=== PATIENT | female | born 1990 | race American Indian/Alaskan Native ===

== ENCOUNTER 2016-10-01 11:00 | Emergency (ER) | payer OTHER ==
[2016-10-01 11:01] VITALS: BMI 27.8
[2016-10-01 11:17] VITALS: TEMP 98
--- NOTE | 2016-10-01 11:29 | ED PDOC ---
Arrival/HPI - General Historian: Patient - History of Present Illness Time/Duration: Prior to Arrival Symptom Onset: Sudden Symptom Course: Unchanged Context: Home <Corinne Whitlock - Last Filed: 10/01/16 17:26> <Heath Washington - Last Filed: 10/01/16 17:31> - General Chief Complaint: Back Pain Time Seen by Provider: 10/01/16 11:16 - History of Present Illness Narrative History of Present Illness (Text): 10/01/16 11:25 26 yo female with no significant PMH presents to emergency department with lower back pain. Patient states that pain began on Wednesday, she denies any trauma or strain. She describes the pain as stabbing. Initially pain radiated throughout her back but currently is located on the lower left side. Patient states pain changes with position. She states she took lidoderm patch which helped with the pain, but the pain would returned. She denies any similar symptoms in the past. She denies fever, chill, diaphoresis, numbness, tingling and weakness. PMD: None (Corinne Whitlock) Past Medical History - Provider Review Nursing Documentation Reviewed: Yes - Infectious Disease Hx of Infectious Diseases: None - Tetanus Immunization Tetanus Immunization: Unknown - Past Medical History Past Medical History: No Previous - Psychiatric Hx Psychophysiologic Disorder: No Hx Anxiety: No Hx Bipolar Disorder: No Hx Depression: No Hx Emotional Abuse: No Hx Hallucinations: No Hx Panic Disorder: No Hx Post Traumatic Stress Disorder: No Hx Psychosis: No Hx Physical Abuse: No Hx Schizophrenia: No Hx Sexual Abuse: No Hx Substance Use: Yes (marijuana) - Surgical History Hx Orthopedic Surgery: Yes (foot) - Anesthesia Hx Anesthesia: Yes - Suicidal Assessment Feels Threatened In Home Enviroment: No <Corinne Whitlock - Last Filed: 10/01/16 17:26> Family/Social History - Physician Review Nursing Documentation Reviewed: Yes Family/Social History: No Known Family HX Smoking Status: Never Smoked Hx Alcohol Use: Yes (SOCIAL) Hx Substance Use: Yes (marijuana) Hx Substance Use Treatment: No <Corinne Whitlock - Last Filed: 10/01/16 17:26> Allergies/Home Meds <Corinne Whitlock - Last Filed: 10/01/16 17:26> <Heath Washington - Last Filed: 10/01/16 17:31> Allergies/Adverse Reactions: Allergies No Known Allergies Allergy (Verified 10/01/16 11:13) Review of Systems - Review of Systems Constitutional: Normal. absent: Fatigue, Weight Change, Fevers Eyes: Normal. absent: Vision Changes ENT: Normal. absent: Sore Throat, Rhinorrhea, Sinus Congestion Respiratory: Normal. absent: SOB, Cough, Wheezing Cardiovascular: Normal. absent: Chest Pain, Palpitations, Calf Pain, Syncope Gastrointestinal: Normal. absent: Abdominal Pain, Constipation, Diarrhea, Nausea, Vomiting Genitourinary Female: Normal. absent: Dysuria, Frequency, Hematuria Musculoskeletal: Back Pain, Myalgias Skin: Normal. absent: Rash, Pruritis, Laceration, Ulcer Neurological: Normal. absent: Headache, Dizziness, Focal Weakness, Gait Changes , Speech Changes Endocrine: Normal. absent: Diaphoresis, Polyuria, Polydipsia Hemo/Lymphatic: Normal. absent: Easy Bleeding, Easy Bruising Psychiatric: Normal <Corinne Whitlock - Last Filed: 10/01/16 17:26> Physical Exam - Systems Exam Head: Present: Atraumatic, Normocephalic Pupils: Present: PERRL. No: Pinpoint Extroacular Muscles: Present: EOMI. No: Gaze Palsy, Entrapment Conjunctiva: Present: Normal Mouth: Present: Moist Mucous Membranes Nose (External): Present: Atraumatic Neck: Present: Normal Range of Motion Respiratory/Chest: Present: Clear to Auscultation, Good Air Exchange. No: Respiratory Distress, Accessory Muscle Use, Wheezes, Rales, Rhonchi, Tachypneic Cardiovascular: Present: Regular Rate and Rhythm, Normal S1, S2. No: Murmurs, Tachycardic, Bradycardic Abdomen: Present: Normal Bowel Sounds. No: Tenderness, Distention, Peritoneal Signs Back: Present: Paraspinal Tenderness (left > right) Upper Extremity: Present: Normal Inspection, NORMAL PULSES. No: Cyanosis, Edema , Tenderness, Swelling Lower Extremity: Present: Normal Inspection. No: Edema, CALF TENDERNESS Neurological: Present: GCS=15, CN II-XII Intact, Speech Normal, Motor Func Grossly Intact, Normal Sensory Function Skin: Present: Warm, Dry, Normal Color. No: Rashes Psychiatric: Present: Alert, Oriented x 3, Normal Insight, Normal Concentration <Corinne Whitlock - Last Filed: 10/01/16 17:26> Medical Decision Making <Corinne Whitlock - Last Filed: 10/01/16 17:26> <Heath Washington - Last Filed: 10/01/16 17:31> ED Course and Treatment: 10/01/16 11:31 Impression: 26 yo female with no significant PMH presents with right sided lower back pain. Differential Diagnosis included but are not limited to: - Muscle strain Plan: - flexeril and toradol - Reassess and disposition Progress Notes: 10/01/16 12:25 - Patient is doing better, pain has improved. Patient is to follow up with PMD in 1-2 days. Discharge plan was discussed with patient, all questions answered. (KamleshRosalindCorinne) 26yo female presents with back pain. No incontinence. No saddles anesthesia. no trauma. Agree with resident note. Exam: paraspinal lower lumbar tenderness worse with movement. Pain when raising left leg. Neg leg raise test. No ataxia. Pain controlled with flexeril and toradol. Patient to f/u with pmd in 1-2days. (Heath Washington) - Medication Orders Current Medication Orders: Discontinued Medications Cyclobenzaprine HCl (Flexeril) 10 mg PO STAT STA Stop: 10/01/16 11:34 Last Admin: 10/01/16 12:05 Dose: Not Given Non-Admin Reason: Patient Refused Ketorolac Tromethamine (Toradol) 60 mg IM STAT STA Stop: 10/01/16 11:34 Last Admin: 10/01/16 12:04 Dose: 60 mg Disposition/Present on Arrival - Present on Arrival Any Indicators Present on Arrival: No History of DVT/PE: No History of Uncontrolled Diabetes: No Urinary Catheter: No History of Decub. Ulcer: No History Surgical Site Infection Following: None - Disposition Have Diagnosis and Disposition been Completed?: Yes Disposition Time: 12:20 <Corinne Whitlock - Last Filed: 10/01/16 17:26> - Disposition Patient Plan: Discharge <Heath Washington - Last Filed: 10/01/16 17:31> - Disposition Diagnosis: Muscle spasm Disposition: HOME/ ROUTINE Condition: GOOD Additional Instructions: Nayana Saavedra, thank you for letting us take care of you today. Your provider was Dr. Whitlock and Dr. Washington. You were treated for muscle spasm. The emergency medical care you received today was directed at your acute symptoms. If you were prescribed any medication, please fill it and take as directed. It may take several days for your symptoms to resolve. Return to the Emergency Department if your symptoms worsen, do not improve, or if you have any other problems. Please contact your doctor or call one of the physicians/clinics you have been referred to that are listed on the Patient Visit Information form that is included in your discharge packet. Bring any paperwork you were given at discharge with you along with any medications you are taking to your follow up visit. Our treatment cannot replace ongoing medical care by a primary care provider (PCP) outside of the emergency department. Thank you for allowing the [facility] team to be part of your care today. Prescriptions: Cyclobenzaprine [Flexeril] 5 mg PO BID PRN #10 tab PRN Reason: Pain, Severe (8-10) Naproxen 500 mg PO BID PRN #20 tab PRN Reason: Pain, Moderate (4-7) Referrals: Mouna Cid MD [Staff Provider] - Follow up with primary Forms: WORK NOTE
[2016-10-01 12:51] VITALS: BP 119/78; PULSE 79; RESP 18; O2SAT 99
== END 2016-10-01 12:40 | disposition home or self-care (01) ==
LOC: ED 11:00
DX: M62.838 Other muscle spasm (principal)
CPT/HCPCS: 96372; 99282; J1885

== ENCOUNTER 2017-03-18 16:55 | Emergency (ER) | payer OTHER ==
[2017-03-18 16:56] VITALS: BMI 27.8
[2017-03-18 17:14] VITALS: BP 113/68; PULSE 73; RESP 18; TEMP 98.7; O2SAT 100
[2017-03-18] MEDS ORDERED: guaiFENesin 200 mg/10 ml Syrup UD PO STA (17:24)
--- NOTE | 2017-03-18 17:27 | ED PDOC ---
Arrival/HPI - General Historian: Patient <Salvatore Granado A - Last Filed: 03/18/17 21:05> <Leann Currie - Last Filed: 03/18/17 23:39> - General Chief Complaint: ENT Problem Time Seen by Provider: 03/18/17 17:23 - History of Present Illness Narrative History of Present Illness (Text): 03/18/17 17:24 26yo female with no PMHx who present with complaint of sore throat, nonproductive cough and congestion x 3days. States she took Nyquil last night without relieve. +Odynophagia. Denies dysphagia, nausea, vomiting, abdominal pain, any other complaint. (Salvatore Granado A) Past Medical History - Provider Review Nursing Documentation Reviewed: Yes - Travel History Have you recently traveled outside [place] w/in the past 3 mons?: Yes - Infectious Disease Hx of Infectious Diseases: None - Tetanus Immunization Tetanus Immunization: Unknown - Past Medical History Past Medical History: No Previous - Psychiatric Hx Psychophysiologic Disorder: No Hx Anxiety: No Hx Bipolar Disorder: No Hx Depression: No Hx Emotional Abuse: No Hx Hallucinations: No Hx Panic Disorder: No Hx Post Traumatic Stress Disorder: No Hx Psychosis: No Hx Physical Abuse: No Hx Schizophrenia: No Hx Sexual Abuse: No Hx Substance Use: Yes (marijuana) - Surgical History Hx Orthopedic Surgery: Yes (foot) - Anesthesia Hx Anesthesia: Yes - Suicidal Assessment Feels Threatened In Home Enviroment: No <Salvatore Granado A - Last Filed: 03/18/17 21:05> Family/Social History - Physician Review Nursing Documentation Reviewed: Yes Family/Social History: Unknown Family HX Smoking Status: Never Smoked Hx Alcohol Use: Yes (SOCIAL) Hx Substance Use: Yes (marijuana) Hx Substance Use Treatment: No <Salvatore Granado A - Last Filed: 03/18/17 21:05> Allergies/Home Meds <Salvatore Granado A - Last Filed: 03/18/17 21:05> <Leann Currie - Last Filed: 03/18/17 23:39> Allergies/Adverse Reactions: Allergies No Known Allergies Allergy (Verified 03/18/17 17:14) Review of Systems - Physician Review All systems were reviewed & negative as marked: Yes - Review of Systems Constitutional: Normal Eyes: Normal ENT: Sore Throat Respiratory: Cough Cardiovascular: Normal Gastrointestinal: Normal Genitourinary Female: Normal Musculoskeletal: Normal Skin: Normal Neurological: Normal Endocrine: Normal Hemo/Lymphatic: Normal Psychiatric: Normal <Salvatore Granado A - Last Filed: 03/18/17 21:05> Physical Exam Vital Signs Reviewed: Yes Temperature: Afebrile Blood Pressure: Normal Pulse: Regular Respiratory Rate: Normal Appearance: Positive for: Well-Appearing, Non-Toxic, Comfortable Pain Distress: None Mental Status: Positive for: Alert and Oriented X 3 - Systems Exam Head: Present: Atraumatic, Normocephalic Pupils: Present: PERRL Extroacular Muscles: Present: EOMI Conjunctiva: Present: Normal Mouth: Present: Moist Mucous Membranes Pharnyx: Present: ERYTHEMA, EXUDATE, TONSILS ENLARGED, Peritonsilar Swelling. No: Uvular Deviation, Muffled/Hoarse Voice, Strider, Soft Palate/Uvular Edema Neck: Present: Normal Range of Motion Respiratory/Chest: Present: Clear to Auscultation, Good Air Exchange. No: Respiratory Distress, Accessory Muscle Use, Wheezes, Decreased Breath Sounds, Rales, Retracting, Rhonchi Cardiovascular: Present: Regular Rate and Rhythm, Normal S1, S2. No: Murmurs Abdomen: Present: Normal Bowel Sounds. No: Tenderness, Distention, Peritoneal Signs Back: Present: Normal Inspection Upper Extremity: Present: Normal Inspection. No: Cyanosis, Edema Lower Extremity: Present: Normal Inspection. No: Edema Neurological: Present: GCS=15, CN II-XII Intact, Speech Normal Skin: Present: Warm, Dry, Normal Color. No: Rashes Psychiatric: Present: Alert, Oriented x 3, Normal Insight, Normal Concentration <Salvatore Granado A - Last Filed: 03/18/17 21:05> Vital Signs Temp Pulse Resp BP Pulse Ox 03/18/17 17:09 98.7 F 73 18 113/68 100 Medical Decision Making <Salvatore Granado A - Last Filed: 03/18/17 21:05> <Leann Currie - Last Filed: 03/18/17 23:39> ED Course and Treatment: 03/18/17 21:05 Pt was comfortable, controlling her secretions, have no meningeal signs. She was treated and DC home with abx for tonsillitis. Referred to her PMD, TRT to ED for any new or worsening symptoms (Salvatore Granado A) - Medication Orders Current Medication Orders: Discontinued Medications Dexamethasone (Decadron Inj) 10 mg IM STAT STA Stop: 03/18/17 17:24 Last Admin: 03/18/17 17:48 Dose: 10 mg IM Administration Charges Document 03/18/17 17:48 MS (Rec: 03/18/17 17:48 MS [id number]) Injection Site MAR Injection Site Right Deltoid Charges for Administration # of IM Administrations 1 Guaifenesin (Robitussin) 200 mg PO Q4H STA Stop: 03/18/17 17:25 Last Admin: 03/18/17 17:47 Dose: 200 mg Penicillin V Potassium (Penicillin Vk Tab) 500 mg PO STAT STA PRN Reason: Protocol Stop: 03/18/17 17:24 Last Admin: 03/18/17 17:48 Dose: 500 mg - PA / DOOR MANAGER / Resident Statement / has reviewed & agrees with the documentation as recorded. <Leann Currie - Last Filed: 03/18/17 23:39> Disposition/Present on Arrival - Present on Arrival Any Indicators Present on Arrival: No History of DVT/PE: No History of Uncontrolled Diabetes: No Urinary Catheter: No History of Decub. Ulcer: No History Surgical Site Infection Following: None - Disposition Have Diagnosis and Disposition been Completed?: Yes Disposition Time: 17:30 Patient Plan: Discharge <VannesaHappiness A - Last Filed: 03/18/17 21:05> <Leann Currie - Last Filed: 03/18/17 23:39> - Disposition Diagnosis: Acute tonsillitis, Cough Disposition: HOME/ ROUTINE Condition: STABLE Discharge Instructions (ExitCare): Tonsillitis (ED), Acute Cough (ED) Additional Instructions: Follow up with your doctor Return to ED for any new or worsening symptoms Prescriptions: Benzonatate [Tessalon Perles] 100 mg PO TID #20 sgl Penicillin VK [Penicillin VK Tab] 250 mg PO BID #28 tab Referrals: [facility] [Outside] - Follow up with primary Forms: [employer] (Vietnamese), WORK NOTE
== END 2017-03-18 17:51 | disposition home or self-care (01) ==
LOC: ED 16:55
DX: J03.90 Acute tonsillitis, unspecified (principal); R05 Cough
CPT/HCPCS: 96372; 99283; J1100

== ENCOUNTER 2017-09-27 16:48 | Emergency (ER) | payer OTHER ==
[2017-09-27 18:33] VITALS: BMI 26.4
--- NOTE | 2017-09-27 18:39 | ED PDOC ---
Arrival/HPI - General Chief Complaint: GI Problem Time Seen by Provider: 09/27/17 18:38 Historian: Patient - History of Present Illness Narrative History of Present Illness (Text): 09/27/17 18:39 Patient was just placed on this Emergency department room. 09/27/17 18:45 This 27 yo female who denies pmh presents to this Emergency department complaining of burping x 2 weeks. Patient stated she has been vomiting , and nausea x 2 days. Patient denies abdominal pain, urinary symptoms, diarrhea, constipation, dizziness, or fever. Time/Duration: Other (see hpi) Context: Home Past Medical History - Provider Review Nursing Documentation Reviewed: Yes - Infectious Disease Hx of Infectious Diseases: None - Tetanus Immunization Tetanus Immunization: Unknown - Reproductive Menopause: No - Past Medical History Past Medical History: No Previous - Psychiatric Hx Psychophysiologic Disorder: No Hx Anxiety: No Hx Bipolar Disorder: No Hx Depression: No Hx Emotional Abuse: No Hx Hallucinations: No Hx Panic Disorder: No Hx Post Traumatic Stress Disorder: No Hx Psychosis: No Hx Physical Abuse: No Hx Schizophrenia: No Hx Sexual Abuse: No Hx Substance Use: Yes (marijuana) - Surgical History Hx Orthopedic Surgery: Yes (foot) - Anesthesia Hx Anesthesia: Yes - Suicidal Assessment Feels Threatened In Home Enviroment: No Family/Social History - Physician Review Nursing Documentation Reviewed: Yes Family/Social History: Other (noncontributory) Smoking Status: Never Smoked Hx Alcohol Use: Yes (SOCIAL) Hx Substance Use: Yes (marijuana) Hx Substance Use Treatment: No Allergies/Home Meds Allergies/Adverse Reactions: Allergies No Known Allergies Allergy (Verified 03/18/17 17:14) Review of Systems - Review of Systems Constitutional: Normal. absent: Fatigue, Weight Change, Fevers Eyes: Normal ENT: Normal Respiratory: Normal. absent: SOB, Cough, Sputum Cardiovascular: Normal Gastrointestinal: Nausea, Vomiting, Other ((+) burping). absent: Abdominal Pain , Constipation, Diarrhea Genitourinary Female: Normal. absent: Dysuria, Frequency, Hematuria, Urine Output Changes, Vaginal Bleeding, Vaginal Discharge Musculoskeletal: Normal Skin: Normal. absent: Rash Neurological: Normal. absent: Headache, Dizziness, Focal Weakness, Gait Changes , Speech Changes, Facial Droop, Disequilibrium, Seizure Endocrine: Normal Hemo/Lymphatic: Normal Psychiatric: Normal Physical Exam Vital Signs Temp Pulse Resp BP Pulse Ox 09/27/17 18:28 98.5 F 72 16 140/70 99 Temperature: Afebrile Blood Pressure: Normal Pulse: Regular Respiratory Rate: Normal Appearance: Positive for: Well-Appearing, Non-Toxic, Comfortable Pain Distress: None Mental Status: Positive for: Alert and Oriented X 3 - Systems Exam Head: Present: Atraumatic, Normocephalic Pupils: Present: PERRL Extroacular Muscles: Present: EOMI Conjunctiva: Present: Normal Mouth: Present: Moist Mucous Membranes Neck: Present: Normal Range of Motion Respiratory/Chest: Present: Clear to Auscultation, Good Air Exchange. No: Respiratory Distress, Accessory Muscle Use Cardiovascular: Present: Regular Rate and Rhythm, Normal S1, S2. No: Murmurs Abdomen: Present: Other (Abdomen is soft, nt/nd). No: Tenderness, Distention, Peritoneal Signs, Rebound, Guarding Back: Present: Normal Inspection. No: CVA Tenderness Upper Extremity: Present: Normal Inspection. No: Cyanosis, Edema Lower Extremity: Present: Normal Inspection. No: Edema Neurological: Present: GCS=15, CN II-XII Intact, Speech Normal Skin: Present: Warm, Dry, Normal Color. No: Rashes Psychiatric: Present: Alert, Oriented x 3, Normal Insight, Normal Concentration Medical Decision Making ED Course and Treatment: 09/27/17 20:00 Re-evaluation. Patient feels better. Discussed results and plan with patient who expresses understanding. All questions answered and there is agreement with the plan to discharge home with instructions. Patient stable for discharge. Return if symptoms persist or worsen. Re-evaluation Time: 20:00 Reassessment Condition: Re-examined, Improved - Lab Interpretations Lab Results: 09/27/17 19:14 09/27/17 19:14 Lab Results 09/27/17 19:14: Sodium 141, Potassium 3.4 L, Chloride 103, Carbon Dioxide 26, Anion Gap 15, BUN 13, Creatinine 0.7, Est GFR ( Amer) > 60, Est GFR (Non- Af Amer) > 60, Random Glucose 85, Calcium 9.0, Magnesium 1.8, Total Bilirubin 0.4, AST 26, ALT 33, Alkaline Phosphatase 59, Total Protein 7.7, Albumin 4.3, Globulin 3.4, Albumin/Globulin Ratio 1.3, Lipase 26 09/27/17 19:14: Urine Color Yellow, Urine Appearance Clear, Urine pH 6.0, Ur Specific [place] 1.025, Urine Protein Negative, Urine Glucose (UA) Negative, Urine Ketones Negative, Urine Blood Negative, Urine Nitrate Negative, Urine Bilirubin Negative, Urine Urobilinogen 0.2, Ur Leukocyte Esterase Trace H, Urine RBC 0 - 2, Urine WBC 1 - 3, Ur Epithelial Cells 6 - 8, Urine Bacteria Many , Urine HCG, Qual Negative 09/27/17 19:14: WBC 9.5 D, RBC 4.24, Hgb 11.6 L, Hct 34.2 L, MCV 80.7, MCH 27.4 , MCHC 33.9, RDW 13.1, Plt Count 321, MPV 10.4, Gran % 61.4, Lymph % (Auto) 30.0 , [place] % (Auto) 6.0, Eos % (Auto) 2.3, Baso % (Auto) 0.3, Gran # 5.85, Lymph # ( Auto) 2.9, [place] # (Auto) 0.6, Eos # (Auto) 0.2, Baso # (Auto) 0.03 I have reviewed the lab results: Yes Interpretation: No clinic. lab abnormalty - Medication Orders Current Medication Orders: Discontinued Medications Al Hydrox/Mg Hydrox/Simethicone (Maalox Plus 30 Ml) 30 ml PO STAT STA Stop: 09/27/17 18:55 Last Admin: 09/27/17 19:28 Dose: 30 ml Famotidine (Pepcid 20mg/50ml Premix) 20 mg in 50 mls @ 100 mls/hr IVPB STAT STA Stop: 09/27/17 19:16 Last Admin: 09/27/17 19:28 Dose: 100 mls/hr eMAR Start Stop Document 09/27/17 19:28 IT (Rec: 09/27/17 19:28 IT [id number]) Intravenous Solution Start Date 09/27/17 Start Time 19:28 Sodium Chloride (Sodium Chloride 0.9%) 1,000 mls @ 999 mls/hr IV .Q1H1M STA Stop: 09/27/17 19:47 Last Admin: 09/27/17 19:28 Dose: 999 mls/hr eMAR Start Stop Document 09/27/17 19:28 IT (Rec: 09/27/17 19:28 IT [id number]) Intravenous Solution Start Date 09/27/17 Start Time 19:28 Ondansetron HCl (Zofran Inj) 4 mg IVP STAT STA Stop: 09/27/17 18:55 Last Admin: 09/27/17 19:28 Dose: 4 mg IVP Administration Document 09/27/17 19:28 IT (Rec: 09/27/17 19:28 IT [id number]) Charges for Administration # of IVP Administrations 1 Simethicone (Mylicon Chew Tab) 80 mg PO PCHS PRN PRN Reason: GI distress Simethicone (Mylicon Chew Tab) 80 mg PO STAT STA Stop: 09/27/17 19:48 Disposition/Present on Arrival - Present on Arrival Any Indicators Present on Arrival: No History of DVT/PE: No History of Uncontrolled Diabetes: No Urinary Catheter: No History of Decub. Ulcer: No History Surgical Site Infection Following: None - Disposition Have Diagnosis and Disposition been Completed?: Yes Disposition: HOME/ ROUTINE Disposition Time: 20:01 Patient Plan: Discharge Condition: GOOD Discharge Instructions (ExitCare): Gas and Bloating Additional Instructions: Call private finish off operator for revaluation. Take medication as instructed. Return to emergency if symptoms worsen. Prescriptions: Famotidine [Pepcid] 40 mg PO DAILY #20 tablet Ondansetron ODT [Zofran ODT] 4 mg PO Q4H PRN #15 odt PRN Reason: Nausea/Vomiting Simethicone [Anti-Gas] 180 mg PO Q8 PRN #30 sgl PRN Reason: Nausea/Vomiting Sucralfate [Carafate] 1 gm PO DAILY #20 tab Referrals: Jose Carlos Ding MD [Staff Provider] - Follow up with primary FAMILY PROVIDER,NO [Primary Care Provider] - Follow up with primary [facility] [Outside] - Follow up with primary [facility] [place] [Outside] - Follow up with primary Forms: [employer] (Slovak), WORK NOTE
[2017-09-27] MEDS ORDERED: Simethicone 80 mg Chewtab PO PRN (18:47)
[2017-09-27] MEDS ORDERED: Sodium Chloride 0.9% 1,000 ML IV STA (18:47)
[2017-09-27] MEDS ORDERED: Famotidine 20mg/50ml 20 MG/50 ML BAG IVPB STA (18:47)
[2017-09-27] MEDS ORDERED: Alum-Mag Hydrox-Simethicone Susp (30 mL) PO STA (18:54)
[2017-09-27 19:27] LABS: BASO # 0.03 K/mm3 (0.0-2.0); BASO % 0.3 % (0.0-3.0); EOS # 0.2 (0.0-0.7); EOS % 2.3 % (1.5-5.0); GRAN # 5.85 (1.4-6.5); GRAN % 61.4 % (50.0-68.0); HEMOGLOBIN 11.6 g/dL (12.0-16.0); LYMPH # 2.9 (1.2-3.4); MEAN CELL VOLUME 80.7 fl (80.0-105.0); MEAN CORPUSCULAR HEMOGLOBIN 27.4 pg (25.0-35.0); MEAN CORPUSCULAR HGB CONC 33.9 g/dl (31.0-37.0); MEAN PLATELET VOLUME 10.4 fl (7.0-11.0); MONO # 0.6 (0.1-0.6); RBC 4.24 10^6/uL (3.5-6.1); RED CELL DISTRIBUTION WIDTH 13.1 % (11.5-14.5); WHITE BLOOD COUNT 9.5 10^3/ul (4.5-11.0)
[2017-09-27 19:28] LABS: URINE APPEARANCE CLEAR (CLEAR); URINE BILIRUBIN NEGATIVE (NEGATIVE); URINE BLOOD NEGATIVE (NEGATIVE); URINE COLOR YELLOW (YELLOW); URINE GLUCOSE (UA) NEGATIVE (NEGATIVE); URINE LEUKOCYTE ESTERASE TRACE Leu/uL (NEGATIVE); URINE PROTEIN NEGATIVE mg/dL (<30 mg/dL); URINE UROBILINOGEN 0.2 E.U./dL (<1 E.U./dL)
[2017-09-27 19:29] LABS: HCG,QUALITATIVE URINE NEGATIVE (NEGATIVE)
[2017-09-27 19:31] LABS: URINE BACTERIA MANY (NEG); URINE RBC 0 - 2 /hpf (0-2)
[2017-09-27 19:39] LABS: ALB/GLOB RATIO 1.3 (1.1-1.8); ALBUMIN 4.3 g/dL (3.0-4.8); ALT/SGPT 33 U/L (7-56); AST/SGOT 26 U/L (14-36); BLOOD UREA NITROGEN 13 mg/dL (7-21); GFR AFRICAN-AMERICAN > 60; GFR NON-AFRICAN AMERICAN > 60; LIPASE 26 U/L (23-300)
[2017-09-27] MEDS ORDERED: Simethicone 80 mg Chewtab PO STA (19:47)
[2017-09-28 01:23] VITALS: BP 128/72; PULSE 78; RESP 17; TEMP 98.2; O2SAT 100
== END 2017-09-27 20:34 | disposition home or self-care (01) ==
LOC: ED 16:48
DX: R14.0 Abdominal distension (gaseous) (principal)
CPT/HCPCS: 80053; 81001; 83690; 83735; 84703; 85025; 87086; 96374; 99284; J2405; J7030

== ENCOUNTER 2018-02-04 07:40 | Day surgery (SDC) | payer OTHER ==
[2018-01-31 14:04] VITALS: BMI 28.3
[2018-02-04] MEDS ORDERED: Propofol 10 mg/ml Inj (20 ML) ONE (08:09)
[2018-02-04] MEDS ORDERED: Midazolam 2 MG/2 ML VIAL ONE (08:09)
[2018-02-04] MEDS ORDERED: Sodium Chloride 0.9% 1,000 ML IV SCH (08:45)
[2018-02-04 09:33] VITALS: BP 111/73; RESP 16; TEMP 97.9
[2018-02-04 09:34] VITALS: PULSE 72; O2SAT 97
== END 2018-02-04 10:08 | disposition home or self-care (01) ==
LOC: ENDO 07:40
PROVIDERS: ATTEND Internal Medicine Gastroenterology
DX: K21.0 Gastro-esophageal reflux disease with esophagitis (principal); K29.70 Gastritis, unspecified, without bleeding; B96.81 Helicobacter pylori [H. pylori] as the cause of diseases classified elsewhere; R11.2 Nausea with vomiting, unspecified
CPT/HCPCS: 43239; 84703; 88305; 88312; 88342; J2001; J2250; J2704; J3010; J7030; J7040